=== PATIENT | male | born 1950 | race Caucasian/White ===

== ENCOUNTER 2024-01-22 10:36 | Outpatient (CLI) | payer OTHER ==
[~2024-01-22] VITALS: Ht 167.6 cm; Wt 81.6 kg
[2024-01-22] MEDS: albuterol 2.5 MG/3 ML nebule NEB PRN (11:10)
[2024-01-22 11:11] VITALS: PULSE 63; RESP 13; O2SAT 91
[2024-01-22 11:25] VITALS: PULSE 66; RESP 15
== END 2024-01-22 23:59 | disposition home or self-care (01) ==
LOC: RT 10:36
PROVIDERS: ATTEND Chiropractor
DX: J44.9 Chronic obstructive pulmonary disease, unspecified (principal)
CPT/HCPCS: 71046; 94060; 94760